=== PATIENT | female | born 1985 | race Caucasian/White ===

== ENCOUNTER 2020-10-10 02:44 | Emergency (ER) | payer MEDICAID, SELFPAY ==
[2020-10-10 06:47] LABS: D Dimer < 200 NG/ML
--- NOTE | 2020-10-10 08:10 | PC.NURSE ---
DOWNTIME DOCUMENTATION FOR ENTIRE LENGTH OF STAY, SEE SCANNED DOCUMENTS FOR DETAILS.
== END 2020-10-10 04:15 | disposition home or self-care (01) ==
PROVIDERS: Emergency Provider Student in an Organized Health Care Education/Training Program; PCP Family Medicine
DX: M79.652 Pain in left thigh (principal)
CPT/HCPCS: 36415; 85379; 99283

== ENCOUNTER 2020-10-15 01:40 | Emergency (ER) | payer MEDICAID, SELFPAY ==
--- NOTE | 2020-10-15 | ECG_ITS ---
Test Reason : NUMBNESS Blood Pressure : / mmHG Vent. Rate : 057 BPM Atrial Rate : 057 BPM P-R Int : 124 ms QRS Dur : 098 ms QT Int : 434 ms P-R-T Axes : 027 -33 051 degrees QTc Int : 422 ms Sinus bradycardia Possible Left atrial enlargement Left axis deviation Nonspecific T wave abnormality Abnormal ECG No previous ECGs available Referred By: Generic ED Physician Electronically Signed By:VITALIY MARIN MD
[2020-10-15 01:45] VITALS: BP 115/72; PULSE 73; RESP 17; TEMP 36.7; O2SAT 100; BMI 20.3
--- NOTE | 2020-10-15 02:08 | PC.NURSE ---
MD at bedside for evaluation
--- NOTE | 2020-10-15 02:14 | ED_ITS ---
HPI - General Adult General Chief complaint: General Medical Stated complaint: Numbness Time Seen by Provider: 10/15/20 02:06 Source: patient Mode of arrival: ambulatory Limitations: no limitations History of Present Illness HPI narrative: Patient history of anxiety had COVID infection last month been feeling tingling on the left side of the face now spreading to the left chest patient worried about a heart problem no motor weakness patient very anxious no family history of multiple sclerosis/lupus no headache Onset (ago): month(s) (1) Related Data Home Medications Medication Instructions Recorded Confirmed No Known Home Meds 10/15/20 10/15/20 Allergies Allergy/AdvReac Type Severity Reaction Status Date / Time No Known Allergies Allergy Verified 10/15/20 01:45 Review of Systems Review of Systems: Constitutional : No Weight loss, No Fever, No Chills ENT/Mouth : No sore throat, No Rhinorrhea Eyes: No Eye Pain, No Swelling Cardiovascular : No Chest Pain, no Dyspnea on Exertion, No Orthopnea, No Edema, No Palpitations, no SOB Respiratory : No Cough, No Sputum Gastrointestinal : no Nausea, No Vomiting, No Diarrhea, No abdominal Pain, No Hematochezia, No Melena Genitourinary : No Dysuria, No Urinary Frequency Musculoskeletal : No joint pain, No Myalgias, No Joint Swelling Skin : No Skin Lesions, No rash Neuro : No Weakness, No Dizziness, No Headache Psych :++ Anxiety/Panic, No Depression Heme/Lymph: No Bruising, No Lymphadenopathy Endocrine : No Polyuria, No Polydipsia All other systems reviewed and are negative Yes all other systems are reviewed and are negative [facility] Past Medical History Medical History (Updated 10/15/20 @ 02:14 by Nima Jaimes MD) Alcoholic hepatitis Blood clot in vein Portal hypertension Social History Social History Smoking Status: Never smoker Use of substances other than those prescribed or required for medical reasons: Yes Substance Use Type: Marijuana Advance Directives: No Advance Directives Information Provided: No Physical Exam Vital Signs: Vital Signs: Last Vital Signs Temp 98.1 F 10/15/20 01:45 Pulse 73 10/15/20 01:45 Resp 17 10/15/20 01:45 BP 115/72 10/15/20 01:45 Pulse Ox 100 10/15/20 01:45 Body Mass Index 20.3 Appearance: Alert. Oriented X3. No acute distress. Eyes: Pupils equal, round and reactive to light. ENT: Pharynx normal. Neck: Normal inspection. Neck supple. CVS: Normal heart rate and rhythm. Pulses normal. Respiratory: No respiratory distress. Breath sounds normal. Abdomen: Soft and nontender. Bowel sounds are present, no mass palpable, no CVA tenderness Skin: Skin warm and dry. Normal skin color. Normal skin turgor. Extremities: No lower extremity edema. Neuro: Oriented X 3. No motor deficit. No sensory deficit. No trigger point tenderness Medical Decision Making ECG Data Attestation: I personally reviewed and interpreted this ECG as follows: Interpretation: Normal sinus rhythm left axis deviation normal intervals heart rate 57 beats per minute sinus bradycardia impression no acute ischemia Discharge Plan Discharge Clinical Impression: Paresthesia Patient Disposition: Home, Self-Care Instructions: Paresthesia (ED) Additional Instructions: Follow-up with primary care doctor if paresthesia get worse, possible anxiety Prescriptions: No Action No Known Home Meds RF: 0 Interventions: ED Discharge Assessment Last Done: 10/15/20 02:43 Discharge Date/Time: 10/15/20 02:52
== END 2020-10-15 02:52 | disposition home or self-care (01) ==
LOC: HO.ED 02:19
PROVIDERS: Emergency Provider Internal Medicine; PCP Family Medicine
DX: R20.2 Paresthesia of skin (principal); K76.6 Portal hypertension; Z86.19 Personal history of other infectious and parasitic diseases
CPT/HCPCS: 93005; 99283; 99284

== ENCOUNTER 2022-05-23 20:26 | Emergency (ER) | payer MEDICAID, SELFPAY ==
[2022-05-23 22:06] VITALS: BP 126/70; PULSE 60; RESP 16; TEMP 36.8; O2SAT 97; BMI 20.3
--- NOTE | 2022-05-24 00:52 | PC.NURSE ---
Pt called, not in [facility]. Per registration, pt waiting in car. This RN calling phone number left with registration, , pt not answering phone @ this time.
== END 2022-05-24 01:09 | disposition left against medical advice (07) ==
PROVIDERS: Emergency Provider Emergency Medicine; PCP Family Medicine
DX: F41.9 Anxiety disorder, unspecified (principal)
CPT/HCPCS: 99281

== ENCOUNTER 2022-05-24 01:49 | Emergency (ER) | payer MEDICAID, SELFPAY ==
[2022-05-24 02:41] VITALS: BP 128/83; PULSE 71; RESP 18; TEMP 36.7; O2SAT 96; BMI 20.3
--- NOTE | 2022-05-24 04:01 | PC.NURSE ---
Pt and visitor requesting to file a complaint. This RN notified. This RN to triage to discuss complaint with pt and visitor. Pt and visitor upset that pt was not called via phone when she arrived previously. This RN explaining that this RN was the one who called the phone number left with registration twice, the first time there was no answer and the second a woman answered stating this RN had the wrong number. Since pt was not in Triage and there was no other way to reach her, she was removed from the system. Pt and visitor insistent that noone ever called her! and that its not fair she had to check in all over again, having to wait even longer!! Pt and visitor insistent that this RN called the wrong number, visitor stating I work for [facility] [employer] [place] and if I made I mistake, I would bump that person to the front of the line. This RN trying to explain that there is one provider on nights and the ED is full as we have to triage by acuity. This RN offering pt and a visitor a hidalgo bed but explaining that the MD was behind and the pt would not be seen immediately. Pt expressing frustration, stating I need to know if I'm going to be seen tonight!!! Pt fleeing the waiting room for fresh air while this RN continued discussing situation with visitor. Zay, nursing bottle house cleaners supervisor notified of situation.
--- NOTE | 2022-05-24 04:15 | PC.NURSE ---
Pt moved into room 18, awaiting MD sky.
[2022-05-24 06:06] VITALS: BP 111/69; PULSE 63; RESP 12; O2SAT 100
--- NOTE | 2022-05-24 06:54 | ED_ITS ---
HPI - Anxiety General Chief Complaint: Anxiety Stated Complaint: anxiety Time Seen by Provider: 05/24/22 06:54 Source: patient Mode of arrival: ambulatory Limitations: no limitations History of Present Illness HPI narrative: 37-year-old female who presents emergency department for evaluation of shortness of breath, palpitations and left shoulder discomfort. The patient states that her neighbor's pit bull lunged at her did not attacked her. The patient states that she immediately developed shortness of breath and heart racing sensation. She states that she also developed pain in her left shoulder and she felt very panicked. She states she has had panic attacks in the past but does not have panic attack several years. She states she has a history of alcoholic hepatitis and is treated with furosemide for peripheral edema. She states that her doctor had concerns about the patient's far and that some of her fluid retention may be secondary to a heart condition and the patient was referred to a graphic art technician. She states she has not been able to follow-up with graphic art technician them and given her symptoms especially the left shoulder pain she was concerned that she may be having a heart attack/heart issue therefore she came to the emergency department to be seen. The patient states that after waiting in the emergency department for approximately 2 hours her symptoms resolved. At the time my evaluation the patient has no chest pain, shortness of breath, shoulder pain or feelings of anxiety. Related Data Home Medications Medication Instructions Recorded Confirmed No Known Home Meds 10/15/20 10/15/20 Allergies Allergy/AdvReac Type Severity Reaction Status Date / Time No Known Allergies Allergy Verified 05/24/22 02:43 Review of Systems Review of Systems: Yes all other systems are reviewed and are negative [facility] Past Medical History [facility] Narrative: Past medical history: COVID-19 infection August 2021, alcoholic hepatitis 5 years prior, depression, anxiety. Social history: She denies tobacco, alcohol and drug use. Medical History Alcoholic hepatitis Blood clot in vein Portal hypertension Social History Social History Substance Use Type: Marijuana Advance Directives: No Physical Exam Vital Signs: Vital Signs: Last Vital Signs Temp 98.1 F 05/24/22 02:41 Pulse 63 05/24/22 06:06 Resp 12 05/24/22 06:06 BP 111/69 05/24/22 06:06 Pulse Ox 100 05/24/22 06:06 O2 Del Method 05/24/22 06:06 BMI result Body Mass Index 20.3 Const: General: cooperative and no acute distress Orientation/consciousness: oriented to person and oriented to place Limitations: no limitations HEENT: Head: Yes normal to inspection, Yes normocephalic and Yes atraumatic Ears: external ears normal General nose exam: Normal external nose present Face and sinus: Yes normal facial exam Mouth: Normal oral and palatal mucosa present Throat: Yes posterior oropharynx normal Eyes: General: appearance normal, both eyes and all related structures Pupils: Equal, round and reactive pupils present Neck: Neck: Yes normal visual inspection, Yes no lymphadenopathy, Yes trachea midline and Yes supple Chest: Chest palpation & inspection: normal inspection of the chest and normal palpation of entire chest wall Resp: Effort & Inspection: normal respiratory effort and able to speak in complete sentences Auscultation: clear to auscultation bilaterally Cardio: Rate: regular rate Rhythm: regular rhythm Heart sounds: S1 normal heart sound present, S2 normal heart sound present and no murmurs GI: Inspection: Yes normal to inspection Palpation (GI): Soft to palpation, nontender and no guarding Auscultation: normal bowel sounds : General: Yes no CVA tenderness Back/Spine/Pelvis: Back: no CVA tenderness Skin: General skin exam: no rashes or lesions noted Neuro: General: oriented to person and oriented to place Cranial nerves: Yes CN's II-XII intact bilaterally and Yes Equal, round and reactive pupils present Cognition (Neuro): normal cognition Motor exam (neuro): 5/5 motor strength present throughout Extrem: General: Yes normal to inspection Psych: Appearance: grossly normal Speech and movement: Normal speech and movement present Affect: normal affect Attitude: cooperative Thought process: Normal thought process present Thought content: Normal thought content present Course Course Course Narrative: 37-year-old female who presents emergency department for evaluation of shortness of breath, palpitations and left shoulder pain that occurred after her neighbor's pit bull lunged at her. The patient does have a history of anxiety and panic attacks in the past. The patient states that her symptoms lasted for approximately 2 hours and resolved while she was waiting in the emergency department to be seen. At the time of my evaluation she was asymptomatic and her exam was unremarkable. Patient's presentation is consistent with hyperventilation syndrome/panic attack . I did discuss this with her and I do not think that she needs any further evaluation. The patient was discharged home. Discharge Plan Discharge Clinical Impression: Hyperventilation, Acute anxiety Patient Disposition: Home, Self-Care Instructions: Hyperventilation (ED) Additional Instructions: The symptoms that you experience after the pit bull lunged at your are consistent with hyperventilation syndrome which is a physiologic response to a stressful situation. Follow-up with your doctor for re-evaluation. Please return to the emergency department if your symptoms get worse or if you develop any symptoms that are concerning to you. Prescriptions: No Action No Known Home Meds
== END 2022-05-24 07:10 | disposition home or self-care (01) ==
PROVIDERS: Emergency Provider Emergency Medicine Emergency Medical Services
DX: F41.9 Anxiety disorder, unspecified (principal); R06.4 Hyperventilation
CPT/HCPCS: 99282